=== PATIENT | male | born 1945 | race Caucasian/White ===

== ENCOUNTER 2017-02-14 14:00 | Inpatient (IN) | payer MEDICARE, OTHER ==
[~2017-02-14] VITALS: Ht 177.8 cm; Wt 96.7 kg
--- NOTE | ~2017-02-14 | DS ---
PATIENT'S NAME: CÉSAR CRISTOBAL [facility] AGE: 71 Y [address] ROOM: [place] [address] LOCATION: [facility] ADMIT DATE: 03/11/2017 Discharge Summary DISCHARGE DATE: 03/13/2017 FAMILY PHYSICIAN: Anthony Eduardo MD ATTENDING PHYSICIAN: Lorena Sena PRIMARY DIAGNOSIS: Degenerative joint disease of the left knee. SECONDARY DIAGNOSES: 1. History of anemia. 2. History of deep vein thrombosis. 3. History of depression. 4. History of valvular heart disease. PROCEDURE PERFORMED: Left total knee arthroplasty with computer navigation. HISTORY: The patient is a 71-year-old male, who presents with advanced left knee degenerative joint disease and associated severely compromised activities of daily living. The patient has decided to proceed with total knee arthroplasty after having been thoroughly counseled regarding the risks, benefits, limitations and alternatives. Please refer to the outpatient clinic notes and admission history and physical for this patient. HOSPITAL COURSE: The patient underwent a left total knee arthroplasty on 03/11/2017 without complications. Spinal anesthesia plus adductor canal block plus periarticular local anesthesia was utilized. The patient received 24 hours of perioperative prophylactic antibiotics and remained hemodynamically stable, neurovascularly intact throughout the entire hospital course. The postoperative prophylactic deep venous thrombosis prophylaxis consisted of Xarelto, early mobilization and pneumatic compression devices. Daily physical therapy for gait training, transfer training range of motion and quadriceps isometric exercises were received. The patient progressed well in physical therapy. On the date of discharge, 03/13/2017, the incision at the knee was healing well and showed no signs of infection. DISPOSITION: . DISCHARGE ACTIVITY: The patient is to bear weight as tolerated with range of motion and quadriceps isometric exercises as instructed. The operative extremity is to be elevated at least 90% of the day. There is to be sterile 4x4 gauze dressings to the incision daily. Dr. Sena is to be notified immediately if there is any increased pain, fevers, chills erythema or drainage. DISCHARGE MEDICATIONS: PATIENT'S NAME: CÉSAR CRISTOBAL [facility] AGE: 71 Y [address] ROOM: [address] [address] LOCATION: [facility] ADMIT DATE: 03/11/2017 Discharge Summary DISCHARGE DATE: 03/13/2017 FAMILY PHYSICIAN: Anthony Eduardo MD ATTENDING PHYSICIAN: Lorena Sena 1. Xarelto 10 mg, take one tab p.o. daily for DVT prevention. Last dose is scheduled for April 10, 2017. 2. Dilaudid 2 mg, take 1-2 tablets every 4 hours as needed for pain. FOLLOWUP: Followup appointment is to be with Dr. Sena on 03/19/2017 for initial postoperative evaluation and x-rays at that time. KIRILL HAMMONDS FOR LORENA SENA MD TLB/modl /[id number] d: 03/19/17 0141 t: 03/21/17 1057, DISCHARGE SUMMARY
--- NOTE | ~2017-02-14 | OR ---
PATIENT'S NAME: CÉSAR CRISTOBAL [facility] AGE: 71 Y [address] ROOM: [place] [address] LOCATION: [facility] ADMIT DATE: 03/11/2017 OR/Procedure Report DISCHARGE DATE: FAMILY PHYSICIAN: Anthony Eduardo MD ATTENDING PHYSICIAN: LORENA SENA SURGEON: Lorena Sena MD ROOFER: 1. KIRILL Macdonald. 2. Carrington Naranjo CST/ZAK. DATE OF PROCEDURE: 03/11/2017 PRE-OP DIAGNOSIS: Degenerative joint disease left knee. POST-OP DIAGNOSIS: Degenerative joint disease left knee. OPERATION: Left total knee arthroplasty with computer navigation. ANESTHESIA: Spinal anesthesia plus adductor canal block plus periarticular local anesthesia (ropivacaine with epinephrine and Toradol). ESTIMATED BLOOD LOSS: Less than 10 mL. DRAIN: None. SPECIMEN: None. COMPLICATIONS: None. IMPLANT SYSTEM: Burak Triathlon Size 5 left posterior stabilized femoral component Size 5 universal modular baseplate 11 mm posterior stabilized size 5 X3 tibial polyethylene insert 32 mm Oval X3 patella component (triple pegged). INDICATIONS FOR SURGERY: The patient is a 71-year-old male, who presents with advanced left knee degenerative joint disease and associated severely compromised activities of daily living. The patient has decided to proceed with knee replacement after having been thoroughly counseled regarding the associated risks, benefits, and limitations. We have specifically reviewed the risks and implications of infection, deep venous thrombosis, pulmonary embolism, mortality, neurovascular complications, blood transfusion (and associated potential for disease transmission or transfusion reaction), stiffness, instability, mechanical deterioration of the components (due to wear and or loosening), and the potential need for revision. We have also emphasized the importance of active involvement and compliance with post- operative physical therapy as a means of optimizing range of motion and PATIENT'S NAME: CÉSAR RCISTOBAL [facility] AGE: 71 Y [address] ROOM: [place] [address] LOCATION: [facility] ADMIT DATE: 03/11/2017 OR/Procedure Report DISCHARGE DATE: FAMILY PHYSICIAN: Anthony Eduardo MD ATTENDING PHYSICIAN: LORENA SENA functional recovery. Informed consent has been granted. DESCRIPTION OF PROCEDURE: The patient was positioned supine after administration of anesthesia and prophylactic antibiotics. A well-padded pneumatic tourniquet was placed around the left proximal thigh, and the left lower extremity was prepped and draped with vigilant sterile technique. The patient's name as well as the intended operative side and procedure were confirmed with a verbal time-out involving myself, the circulating nurse, the scrub nurse, and the anesthesiologist. Examination under anesthesia demonstrated a large effusion. There were no active skin lesions or masses. There was no erythema. There was no abnormal warmth. Tibial femoral alignment was neutral. Range of motion under anesthesia was from full extension to 130 degrees of flexion. There was no ligamentous insufficiency. The left lower extremity was elevated and exsanguinated with an Esmarch wrap, and the pneumatic tourniquet was inflated to 300mmHg. The knee was approached through a longitudinal midline incision. A medial parapatellar arthrotomy was performed and the patella was everted. Examination of the joint space demonstrated a large amount of benign-appearing translucent synovial fluid. The cruciate ligaments were intact. There was complex degenerative tearing of the remnant of the lateral meniscus. There was an undersurface horizontal cleavage tear at the posterior horn of the medial meniscus with an associated unstable undersurface flap tear. There was full-thickness loss of articular cartilage involving the majority of the lateral 2/3rd of the patella and 90% of the lateral half of the femoral trochlea. There was a small osteophyte at the lateral femoral trochlea. There was a small osteophyte at the lateral femoral condyle. There were small osteophytes at the superior and inferior margins of the patella. There was grade 2 chondromalacia at the medial femoral condyle and medial tibial plateau. There was a 1 cm diameter region of high-grade partial-thickness articular cartilage loss at the lateral aspect of the medial femoral condyle. There was high-grade partial-thickness articular cartilage loss throughout the majority of the central aspect of the lateral tibial plateau. Remnants of the menisci and cruciate ligaments were excised. The [employer] navigation femoral tracker was pinned in place at the distal aspect of the femoral trochlea. Absence of motion between the femur and the tracking device was confirmed manually and visually. Femoral osseous landmarks were obtained in order to calibrate the computer navigation system. Landmarks included the center of rotation of the ipsilateral hip, the center-point of the distal femur, the femoral AP axis, 57 points on the medial femoral condyle articular surface, and 57 points on the lateral femoral condyle articular PATIENT'S NAME: CÉSAR CRISTOBAL [facility] AGE: 71 Y [address] ROOM: [id number] [place], [place] [address] LOCATION: [facility] ADMIT DATE: 03/11/2017 OR/Procedure Report DISCHARGE DATE: FAMILY PHYSICIAN: Anthony dEuardo MD ATTENDING PHYSICIAN: LORENA SENA. The [employer]ender computer navigation system was subsequently utilized to position the distal femoral resection block such that the distal femoral resection was performed perfectly perpendicular to the femoral mechanical axis. The distal femoral resection was performed with a [employer] oscillating saw. The World Blender computer navigation tibial tracker was pinned in place at the anterior aspect of the tibial plateau. Absence of motion between the tibia and the tracking device was confirmed manually and visually. Tibial osseous landmarks were obtained in order to calibrate the computer navigation system. Landmarks included the center-point of the tibial plateau, the AP tibial axis, 57 points on the medial tibial plateau articular surface, 57 points on the lateral tibial plateau articular surface, the medial malleolus, and the lateral malleolus. The World Blender computer navigation system was subsequently utilized to position the proximal tibial resection block such that the proximal tibial resection was performed perfectly perpendicular to the tibial mechanical axis. The proximal tibial resection was performed with a [employer] Precision oscillating saw. Perpendicularity of the tibial resection with respect to the tibial shaft axis was reconfirmed by inserting a spacer- block attached to an extramedullary guide keith. External rotation of the anterior and posterior femoral resections was set parallel to the epicondylar axis and carefully adjusted in order to create a rectangular flexion gap. The box resection was performed with a reciprocating saw. Anterior and posterior chamfer resections were performed with the oscillating saw. Posterior condyle osteophytes were excised with an osteotome. All other osteophytes were excised with a rongeur. Resection of all remnants of the menisci was reconfirmed. Flexion and extension gaps were confirmed to be symmetric and well balanced with a spacer-block technique. The patella resection was performed with an oscillating saw such that the composite thickness of the reconstructed patella was equivalent to the thickness of the [place] patella. Patella tracking was confirmed to be optimal. A lateral retinacular release was required in order to optimize patella tracking. All trial components were removed and all prepared osseous surfaces were thoroughly irrigated with pulsatile saline lavage and dried prior to cementing all three components in a single stage using Burak Simplex cement containing pre-mixed tobramycin. All extruded excess cement was removed. The entire joint space was thoroughly inspected and thoroughly irrigated with bacteriostatic pulsatile saline lavage to assure that there was no residual debris of any sort. Final range of motion was from full extension (with no passive hyperextension) PATIENT'S NAME: CÉSAR CRISTOBAL [facility] AGE: 71 Y [address] ROOM: [address] [address] LOCATION: [facility] ADMIT DATE: 03/11/2017 OR/Procedure Report DISCHARGE DATE: FAMILY PHYSICIAN: Anthony Eduardo MD ATTENDING PHYSICIAN: LORENA SENA to 130 degrees of flexion. Patella tracking was reconfirmed to be optimal. There was very good anteroposterior stability at 90 degrees of flexion. There was less than 1 mm of medial lift-off to valgus stress in full extension. There was less than 1 mm of lateral lift-off to varus stress in full extension. The arthrotomy was closed with multiple simple and [id number] interrupted #1 Vicryl. Subcutaneous tissues were thoroughly re-irrigated with bacteriostatic pulsatile saline lavage. Subcutaneous tissues were re- approximated with simple buried interrupted #0 Vicryl sutures. The skin was closed with simple buried interrupted 2-0 Vicryl sutures followed by surgical cole. The dressing consisted of Xeroform gauze, 4x4 gauze, ABD pads and two 6-inch Yeyo Wraps. There were no intra-operative complications. It should be noted that the physician's medicine assistant played an active, integral role throughout this entire operation. By providing expert retraction, they greatly facilitated and expedited safe and effective exposure of the distal femur, proximal tibia and patella for preparation and implantation of the components. They were also actively involved in the patient's positioning, prepping and draping, as well as wound closure. MD ROCÍO GIBSON/carter /[id number] d: 03/11/172199 t: 03/15/17 1747, OPERATIVE SUMMARY
[~2017-02-14 14:00] MED LIST: ADVIL200 MG PO; ASPIRIN EC81 MG PO; FEOSOL325 MG PO; KRILL OIL 5001 EACH PO; LYSINE1000 MG PO; METAMUCIL PACKE1 PKT PO; THERA-VITE W/ B1 TAB PO; VITAMIN C500 M1 PO
[2017-03-11] MEDS ORDERED: CIPRO500 MG PO (11:18)
--- NOTE | 2017-03-11 18:52 | NUR ---
Significant Event: Received from PACU @ 1740. Will have 1st 30 min vs due @ 1900. Room air. Unable to move rd feet, numbmess and tingling. EZ wrap, betsy hose and foot pumps on. Has not voided. Denies c/o pain. @ bedside. Follow up:
--- NOTE | 2017-03-12 04:38 | NUR ---
Patient alert and oriented x3, very pleasant and cooperative, one assist with walker and gaitbelt does very well, csm within normal limits, has had pain issues tonight, recieved two doses of toradol, oral and IV push diluadid, dressing is clean dry and intact, ice inplace to knee, voiding well
[2017-03-12 05:25] LABS: HEMATOCRIT 30.2 % (37.0-53.0); HEMOGLOBIN 9.8 g/dL (11.0-16.0)
--- NOTE | 2017-03-12 10:40 | NUR ---
Introduced self/role to patient. Reviewed use of IS; encouraged at least 10 deep breaths each hour. Patient demonstrates with excellent technique. Encouraged waving of his feet. Has foot pumps on bilaterally. Does not anticipate any discharge needs or concerns at this time. Has available to help. Reports he has equipment. Will follow and assist as needs identified.
--- NOTE | 2017-03-12 14:43 | NUR ---
Charting checked by Dr. Taiwo Vela DNP, CMSRN
--- NOTE | 2017-03-12 15:56 | NUR ---
Significant Event: Ambulates with SBA and walker. Dressing C/D/I. Ez wrap ice at all times. Voids without difficulty. CSM WNL. Pain controled with Dilaudid 2mg and Tylenol 1000mg see eMAR for times. Plans to dismiss to home tomorrow. Follow up:
--- NOTE | 2017-03-13 05:09 | NUR ---
Significant Event: Dressing is clean, dry and intact. CSM WNL. Voids without difficulty. 1 assist with transfers. Dilaudid last at 0452. Follow up:
[2017-03-13 05:39] LABS: HEMATOCRIT 24.1 % (37.0-53.0)
[2017-03-13] MEDS ORDERED: TYLENOL EXTRA500 MG PO (11:41)
[2017-03-13] MEDS ORDERED: MIRALAX17 GM PO (11:42)
[2017-03-13] MEDS ORDERED: XARELTO10 MG PO (11:43)
[2017-03-13] MEDS ORDERED: FEOSOL325 MG PO (11:45)
[2017-03-13] MEDS ORDERED: DILAUDID 2MG(HYD2 MG PO (11:46)
[2017-03-13] MEDS ORDERED: COLACE100 MG PO (11:50)
--- NOTE | 2017-03-13 15:16 | NUR ---
PT GIVEN DISCHARGE INSTRUCTIONS AND VOICES UNDERSTADNING. MEDICATIONS AND DRESSINGS CHANGES REVIEWED WITH PT AND HIS . . ESCORTED TO THE FRONT DOOR BY RAGHU RDZ. AT PT'S SIDE.
== END 2017-03-13 13:55 | disposition disaster alternative care site (69) | DRG 470 ==
LOC: G3N 03-11 09:23
PROVIDERS: ADMIT Orthopaedic Surgery
PROC: 0SRD0J9 Replacement of Left Knee Joint with Synthetic Substitute, Cemented, Open Approach (ICD-10-PCS; principal; 2017-03-11)
DX: M17.12 Unilateral primary osteoarthritis, left knee (principal); I27.2 Other secondary pulmonary hypertension; Z86.718 Personal history of other venous thrombosis and embolism; F32.9 Major depressive disorder, single episode, unspecified; Z79.82 Long term (current) use of aspirin
CPT/HCPCS: C1713; C1776; J0690; J1100; J1170; J1885; J2250; J2405; J2795; J7120

== ENCOUNTER → 2017-03-19 | Outpatient (CLI) | payer MEDICARE, OTHER ==
[~2017-03-19] MED LIST changes: +CIPRO500 MG PO; +COLACE100 MG PO; +DILAUDID 2MG(HYD2 MG PO; +MIRALAX17 GM PO; +TYLENOL EXTRA500 MG PO; +XARELTO10 MG PO
[2017-03-19 13:04] LABS: CREATININE 0.9 mg/dL (0.6-1.3); ESTIMATED GFR (MDRD EQUATION) > 60
== END | disposition disaster alternative care site (69) ==
LOC: GLAB 12:00 → GRAD 12:13
PROVIDERS: Orthopaedic Surgery
DX: Z47.1 Aftercare following joint replacement surgery (principal); Z96.651 Presence of right artificial knee joint; K59.00 Constipation, unspecified
CPT/HCPCS: Q9967

== ENCOUNTER → 2017-06-06 | Outpatient (CLI) | payer MEDICARE, OTHER ==
--- NOTE | ~2017-06-06 | ENPV ---
Vascular Lower Extremities DVT Study Procedure Demographics Patient Name CÉSAR CRISTOBAL Date of Study 06/06/2017 Patient Number [id number] Gender Male Date of 1945 Age 71 Visit Number [id number] Height Accession Number [id number] Weight Room Number BSA BMI Referring Bayron Hester MD Interpreting Mallory Martinez MD Physician Physician Physician Ordering Physician Bayron Hester MD Architecture Drafter Lever Miller Teresa Dozier BS, RT Conclusions Summary No evidence of deep vein thrombosis or superficial thrombophlebitis in the left lower extremity . Enlarged lymph nodes in inguinal canals bilaterally. Procedure Type of Study: Veins:Lower Extremities DVT Study, Lower Extremity Left. Indications for Study:Swelling of Limb. Patient Status:Routine. Study Location:Vascular Lab. Technical Quality:Adequate visualization. - Preliminary reported to:Carleen. Velocities are measured in cm/s ; Diameters are measured in cm Right Lower Extremities DVT Study Measurements Right 2D and Doppler Measurements + + + + +------+------+ + !Location !Visualized!Compressibility!Thrombosis!Signal!Reflux!Reflux ! ! ! ! ! ! ! !(sec) ! + + + + +------+------+ + !Common !Yes !Yes !None !Phasic! ! ! !Femoral ! ! ! ! ! ! ! + + + + +------+------+ + Left Lower Extremities DVT Study Measurements Left 2D and Doppler Measurements + + + + +------+------+ + !Location !Visualized!Compressibility!Thrombosis!Signal!Reflux!Reflux ! ! ! ! ! ! ! !(sec) ! + + + + +------+------+ + !GSV Thigh !Yes !Yes !None !Phasic!No ! ! + + + + +------+------+ + !Common !Yes !Yes !None !Phasic!No ! ! !Femoral ! ! ! ! ! ! ! + + + + +------+------+ + !Prox !Yes !Yes !None !Phasic!No ! ! !Femoral ! ! ! ! ! ! ! + + + + +------+------+ + !Mid Femoral!Yes !Yes !None !Phasic!No ! ! + + + + +------+------+ + !Dist !Yes !Yes !None !Phasic!No ! ! !Femoral ! ! ! ! ! ! ! + + + + +------+------+ + !Popliteal !Yes !Yes !None !Phasic!No ! ! + + + + +------+------+ + !Gastroc !Yes !Yes !None !Phasic!No ! ! + + + + +------+------+ + !PTV !Yes !Yes !None !Phasic!No ! ! + + + + +------+------+ + !Peroneal !Yes !Yes !None !Phasic!No ! ! + + + + +------+------+ + Signature dtt: Brandon Tejada dtd: 06/06/17 1318 Physician Self Edit
== END | disposition disaster alternative care site (69) ==
LOC: GCAR 12:59
DX: M79.662 Pain in left lower leg (principal); M79.89 Other specified soft tissue disorders; R59.0 Localized enlarged lymph nodes